=== PATIENT | male | born 1985 | race Caucasian/White ===

== ENCOUNTER 2018-09-28 05:44 | Emergency (ER) | payer MEDICAID, OTHER ==
[2018-09-28 05:52] VITALS: BP 154/90
--- NOTE | 2018-09-28 06:09 | EDPHY ---
H & P Stated Complaint: SLEPT IN WAITING ROOM FOR 5 HRS THEN C/O BLISTERS ON FEET Time Seen by Provider: 09/28/18 06:01 HPI/ROS: Chief Complaint: Blisters on feet HPI: 33-year-old homeless male presenting complaining of blisters on his feet. Patient he states that he has been wearing shoes that have been ill fitting and developed blisters. He threw he threw them away and has been walking in the rain and snow for the last day. He came in last night looking for a place to stay warm. Nursing staff allowed him to stay in the waiting room and gave him a new pair screws and 2 pairs of socks. This morning when they suggested he leave the premises patient SP seen. He is now stating that he would like to stay in the hospital for a couple of days until his feet have a chance to heal. No redness, no fevers or chills. No calf pain or swelling. No chest pain or shortness of breath. ROS: 10 systems were reviewed and were negative except those elements noted in the HPI. PMH: Denies Social History: No smoking, no alcohol, currently homeless Family History: non-contributory Physical Exam: Gen: Awake, Alert, No Distress HEENT: Nose: no rhinorrhea Eyes: PERRLA, EOMI Mouth: Moist mucosa Neck: Supple, no JVD Chest: nontender, lungs clear to auscultation Heart: S1, S2 normal, no murmur Abd: Soft, non-tender, no guarding Back: no CVA tenderness, no midline tenderness Ext: no edema, non-tender, patient has superficial blistering on both his feet. On his left foot is just at the medial aspect of his for the base was pre toe. There is no erythema. There is no fluctuance. No pointing. No streaking. Calves are nontender. Intact blister on her right foot. No discharge Skin: no rash Neuro: CN II-XII intact, Sensation grossly intact, Strength 5/5 in bilateral upper and lower extremities - Personal History Current Tetanus/Diphtheria Vaccine: Yes Current Tetanus Diphtheria and Acellular Pertussis (TDAP): Yes - Medical/Surgical History Hx Asthma: No Hx Chronic Respiratory Disease: No Hx Diabetes: No Hx Cardiac Disease: No Hx Renal Disease: No Hx Cirrhosis: No Hx Alcoholism: No Hx HIV/AIDS: No Hx Splenectomy or Spleen Trauma: No Other PMH: DENIES - Social History Smoking Status: Current every day smoker Constitutional: Initial Vital Signs Temperature (C) 36.4 C 09/28/18 05:49 Heart Rate 88 09/28/18 05:49 Respiratory Rate 18 09/28/18 05:49 Blood Pressure 154/90 H 09/28/18 05:49 O2 Sat (%) 99 09/28/18 05:49 O2 Delivery Mode Room Air Allergies/Adverse Reactions: No Known Allergies Allergy (Unverified 09/28/18 05:52) Home Medications: Medication Instructions Recorded NK [No Known Home Meds] 09/28/18 Medical Decision Making ED Course/Re-evaluation: 33-year-old male with ruptured blisters on both his feet. There are no signs of infections. There is no deep ulceration. Patient is demands stay in the hospital toes fecal upset and go. I have informed him that he does not have a medical condition requiring hospital admission. Will refer him to the [facility]. He has been given the information for the care home. Patient has been given shoes here and socks. Will discharge with follow-up as an outpatient. Departure - Departure Disposition: Home, Routine, Self-Care Clinical Impression: Blister of foot Condition: Good Instructions: Blister (ED) Additional Instructions: Follow up at [facility] in 2-3 days for further evaluation. Return to the emergency department for increasing redness, streaking up your legs, fever, or any other concerns. Referrals: [facility],. [Clinic] - As per Instructions
== END 2018-09-28 06:16 | disposition home or self-care (01) ==
DX: S90.821A Blister (nonthermal), right foot, initial encounter (principal); S90.822A Blister (nonthermal), left foot, initial encounter; Y93.01 Activity, walking, marching and hiking; Z59.0 Homelessness